=== PATIENT | female | born 1985 | race Hispanic/Latino ===

== ENCOUNTER 2017-02-04 21:31 | Emergency (ER) | payer BC, MEDICAID ==
--- NOTE | 2017-02-05 00:06 | ED PDOC ---
HPI: Psych/Substance Abuse Time Seen by Provider: 02/04/17 22:05 Chief Complaint (Nursing): Substance Abuse History Per: Patient Additional Complaint(s): Pt. brought in by [employer] for substance use. Pt. states she smoked a "drug" today. Offers no complaints at this time. [employer] requesting medical and psychiatric clearance. Denies SI/HI, hallucinations. Past Medical History Reviewed: Historical Data, Nursing Documentation, Vital Signs Vital Signs: Last Vital Signs Temp 98.5 F 02/04/17 23:20 Pulse 91 H 02/04/17 23:20 Resp 18 02/04/17 23:20 BP 136/81 02/04/17 23:20 Pulse Ox 95 02/04/17 23:20 - Family History Family History: States: No Known Family Hx - Immunization History Hx Tetanus Toxoid Vaccination: No Hx Influenza Vaccination: No Hx Pneumococcal Vaccination: No - Home Medications Home Medications: Ambulatory Orders Medication Instructions Recorded Doxycycline [Adoxa] 1 tab PO BID #14 tab 03/30/15 Multivitamin 1 tab PO DAILY 03/30/15 - Allergies Allergies/Adverse Reactions: Allergies Allergy/AdvReac Type Severity Reaction Status Date / Time No Known Allergies Allergy Verified 03/30/15 10:06 Review of Systems ROS Statement: Except As Marked, All Systems Reviewed And Found Negative Physical Exam - Reviewed Nursing Documentation Reviewed: Yes Vital Signs Reviewed: Yes - Physical Exam Appears: Positive for: Well, Non-toxic, No Acute Distress Head Exam: Positive for: ATRAUMATIC, NORMAL INSPECTION, NORMOCEPHALIC Skin: Positive for: Normal Color, Warm. Negative for: Rash Eye Exam: Positive for: EOMI, Normal appearance, PERRL ENT: Positive for: Normal ENT Inspection Neck: Positive for: Normal, Painless ROM Cardiovascular/Chest: Positive for: Regular Rate, Rhythm Respiratory: Positive for: CNT, Normal Breath Sounds Gastrointestinal/Abdominal: Positive for: Normal Exam, Bowel Sounds, Soft Back: Positive for: Normal Inspection Extremity: Positive for: Normal ROM Neurologic/Psych: Positive for: Alert, Oriented - ECG O2 Sat by Pulse Oximetry: 95 - Progress ED Course And Treament: Pt. evaluated by Sarah guillory, who spoke with Dr. Son and cleared pt. for discharge. Disposition - Clinical Impression Clinical Impression: Substance abuse - Patient ED Disposition Is Patient to be Admitted: No - Disposition Disposition: Routine/Home Disposition Time: :33 Condition: STABLE Additional Instructions: Patient is medically and psychiatrically cleared for incarceration. Instructions: Polysubstance Abuse (ED)
[2017-02-05 01:39] VITALS: BP 129/83; PULSE 84; RESP 17; TEMP 98.1; O2SAT 100
== END 2017-02-05 01:38 ==
LOC: H.ER 21:31
DX: F19.10 Other psychoactive substance abuse, uncomplicated (principal)

== ENCOUNTER 2018-06-28 08:35 | Emergency (ER) | payer MEDICAID ==
[2018-06-28] MEDS ORDERED: Oxycodone/Acetaminophen 5/325 mg Tab PO STA (09:36)
--- NOTE | 2018-06-28 09:44 | ED PDOC ---
Lower Extremity Pain/Injury Time Seen by Provider: 06/28/18 09:12 Chief Complaint (Nursing): Lower Extremity Problem/Injury Chief Complaint (Provider): Right Leg Injury History Per: Patient History/Exam Limitations: no limitations Onset/Duration Of Symptoms: Days (x2) Current Symptoms Are (Timing): Still Present Additional Complaint(s): 32 year old female, with no significant PMHx, presenting for evaluation of right leg pain x2 days. Patient states she fell down 4 step last night and has been unable to ambulate since. Patient is currently complaining of lower right leg pain. Patient denies taking any medication for pain. Otherwise she denies any numbness or tingling. Past Medical History Reviewed: Historical Data, Nursing Documentation, Vital Signs Vital Signs: Last Vital Signs Temp 98.6 F 06/28/18 08:39 Pulse 90 06/28/18 08:39 Resp 17 06/28/18 08:39 BP 106/70 06/28/18 08:39 Pulse Ox 96 06/28/18 08:39 - Medical History PMH: No Chronic Diseases Denies: Diabetes, Hepatitis, HIV, HTN, Seizures, Sexually Transmitted Disease - Surgical History Surgical History: No Surg Hx - Family History Family History: States: Unknown Family Hx - Immunization History Hx Tetanus Toxoid Vaccination: No Hx Influenza Vaccination: No Hx Pneumococcal Vaccination: No - Home Medications Home Medications: Ambulatory Orders Medication Instructions Recorded Doxycycline [Adoxa] 1 tab PO BID #14 tab 03/30/15 Multivitamin 1 tab PO DAILY 03/30/15 oxyCODONE/Acetaminophen [Percocet 1 tab PO Q6H PRN #15 tab 06/28/18 5/325 mg Tab] - Allergies Allergies/Adverse Reactions: Allergies Allergy/AdvReac Type Severity Reaction Status Date / Time No Known Allergies Allergy Verified 03/30/15 10:06 Review of Systems ROS Statement: Except As Marked, All Systems Reviewed And Found Negative Musculoskeletal: Positive for: Leg Pain (right) Neurological: Negative for: Numbness Physical Exam - Reviewed Nursing Documentation Reviewed: Yes Vital Signs Reviewed: Yes - Physical Exam Appears: Positive for: Non-toxic, No Acute Distress Pulses-Dorsalis Pedis (L): 2+ Pulses-Dorsalis Pedis (R): 2+ Extremity: Positive for: Tenderness (tenderness to the right lateral lower leg with no ecchymosis and no deformity), Other (ecchymosis to the right lateral foot and lateral malleolus with edema and decreased ROM secondary to pain; sensation intact) Neurologic/Psych: Positive for: Alert, Oriented. Negative for: Motor/Sensory Deficits - ECG O2 Sat by Pulse Oximetry: 96 (RA) Pulse Ox Interpretation: Normal Medical Decision Making Medical Decision Makin Impression: Right leg injury Plan: -Urine dip -Right Knee x-ray -Percocet 1 tab PO -Right ankle x-ray -Right foot x-ray -Right tib-fib x-ray -Reevaluation 934: Case discussed with podiatry who will see and evaluate patient. Pt seen and examined by Podiatry, dx high fibular fx, case d/w Dr. Marcelino, Ortho not needed for fibular fx since not surgical case but needs OR for ankle disruption. Norton compressive dressing placed, crutches nonweight-bearing. Scribe Attestation: Documented by Arnaldo Chawla, acting as a scribe for Eugenie Traore MD. Provider Scribe Attestation: All medical record entries made by the Scribe were at my direction and personally dictated by me. I have reviewed the chart and agree that the record accurately reflects my personal performance of the history, physical exam, medical decision making, and the department course for this patient. I have also personally directed, reviewed, and agree with the discharge instructions and disposition. Disposition - Clinical Impression Clinical Impression: Right fibular fracture - Patient ED Disposition Is Patient to be Admitted: No - Disposition Referrals: Alexy Marcelino DPM [Staff Provider] - Disposition: Routine/Home Disposition Time: 11:10 Condition: STABLE Additional Instructions: FOLLOW-UP WITH DR. MARCELINO ON TUESDAY (07/03/18). Prescriptions: oxyCODONE/Acetaminophen [Percocet 5/325 mg Tab] 1 tab PO Q6H PRN #15 tab PRN Reason: Pain, Severe (8-10) Instructions: Fibula Fracture Forms: [facility] ([facility])
[2018-06-28 11:19] VITALS: TEMP 98.6
--- NOTE | 2018-06-28 11:57 | RAD ---
Date of service: 06/28/2018 PROCEDURE: Right Foot Radiographs. HISTORY: Fall COMPARISON: None. FINDINGS: BONES: Normal. No fracture. JOINTS: Normal. SOFT TISSUES: Normal. OTHER FINDINGS: None. IMPRESSION: Normal right foot radiographs.
[2018-06-28 11:58] VITALS: BP 110/70; PULSE 87; RESP 18; O2SAT 98
--- NOTE | 2018-06-28 12:00 | RAD ---
Date of service: 06/28/2018 PROCEDURE: Radiographs of the right tibia and fibula. HISTORY: Fall COMPARISON: None available TECHNIQUE: Frontal and lateral views obtained. FINDINGS: BONES: A lateral proximal fibular metaphyseal spiral fracture is noted JOINT SPACES: Unremarkable. OTHER FINDINGS: Possible additional nondisplaced fracture posterior malleolus IMPRESSION: Nondisplaced lateral proximal fibular metaphyseal spiral fracture noted. Comments: Consider further evaluation with MRI of the right ankle if needed to assess potential posterior malleolar nondisplaced fracture. Comments: Study marked for PA review .
--- NOTE | 2018-06-28 12:02 | RAD ---
Date of service: 06/28/2018 PROCEDURE: Right Ankle Radiographs. HISTORY: Fall COMPARISON: None FINDINGS: BONES: Possible nondisplaced posterior malleolar trabecular fracture JOINTS: Normal. No osteoarthritis. Ankle mortise maintained. Talar dome intact SOFT TISSUES: Lateral and posterior soft tissue swelling. OTHER FINDINGS: None. IMPRESSION: Possible nondisplaced posterior malleolar trabecular fracture. Lateral soft tissue tissue swelling in the area of interest is noted. Comments: Consider MRI or CT of the right ankle for further evaluation. Comments: Study marked for PA review .
--- NOTE | 2018-06-28 12:34 | RAD ---
Date of service: 06/28/2018 PROCEDURE: Right Knee Radiographs. HISTORY: Fall COMPARISON: None. FINDINGS: BONES: Nondisplaced fracture proximal fibular shaft to metaphysis. JOINTS: Normal. No osteoarthritis. JOINT EFFUSION: None. OTHER FINDINGS: None. IMPRESSION: Nondisplaced fracture proximal fibular shaft to metaphysis. Comments: Please note additional findings regarding the right ankle in the right ankle and right tib fib report. Comments: Study marked for PA review .
--- NOTE | 2018-06-28 13:34 | CP.PCM.PN ---
Subjective - Date & Time of Evaluation Date of Evaluation: 06/28/18 Time of Evaluation: 13:32 - Subjective Subjective: Podiatry Consult Note for Dr. Edmonds: 32 yo female patient, with no siginificant PMHx, seen and evaluated for R leg pain. Patient states that yesterday she fell down the stairs and and banged her leg on the steps. After the incident she was no longer able to ambulate and in severe pain. She currently rates the pain a 10/10. She continues to take OTC pain medication for her pain. After her pain did not resolved, she presented to the ED for further evaluation. Patient is accompanied by her mother. Denies any numbness or tingling. Denies N/V/F/SOB. PMHx: Denies PSHx: Denies All: NKDA Objective - Vital Signs/Intake and Output Vital Signs (last 24 hours): Temp Pulse Resp BP Pulse Ox 98.6 F 87 18 110/70 98 06/28/18 08:39 06/28/18 11:57 06/28/18 11:57 06/28/18 11:57 06/28/18 11:57 - Constitutional Appears: Well, Non-toxic, No Acute Distress - Extremities Exam Additional comments: Vascular: DP/PT 2/4, CFT < 3seconds to all digits, TG WNL, +1 edema to ankle joint and lateral aspect of leg Ortho: MMT 3/5 due to patient guarding, patient able to wiggle toes, severe pain upon palpation of lateral aspect of leg, pain with palpation of anterior ankle Neuro: Gross and protective sensation intact. No paresthesia or paralysis Derm: No open lesions, no erythema, no clinical signs of infection. Diffuse ecchymosis noted to medial aspect of ankle along the course of posterior tibial tendon. - Neurological Exam Neurological Exam: Alert, Awake, Oriented x3 - Psychiatric Exam Psychiatric exam: Normal Affect, Normal Mood Assessment and Plan - Assessment and Plan (Free Text) Assessment: 32 yo female patient, with no siginificant PMHx, seen and evaluated for R leg pain secondary to high fibular fracture and syndesmotic injury Plan: Patient seen and evaluated with all questions and concerns addressed Tib fib, knee, ankle, and foot x-rays taken; Nondisplaced fracture proximal fibular shaft to metaphysis,possuble non-displaced lateral proximal fibular metaphyseal spiral fracture Hiram compression and posterior splint applied to RLE Patient given crutches and instructed on their proper use OTC pain medication as needed Patient to follow up in podiatry clinic Patient will be booked for surgery for repair of syndesmosis Patient expressed verbal understanding Thank you for the consult
== END 2018-06-28 11:50 | disposition home or self-care (01) ==
LOC: H.ER 08:35
DX: S82.401A Unspecified fracture of shaft of right fibula, initial encounter for closed fracture (principal); W10.9XXA Fall (on) (from) unspecified stairs and steps, initial encounter; Y92.89 Other specified places as the place of occurrence of the external cause

== ENCOUNTER 2018-06-30 06:39 | Day surgery (SDC) | payer MEDICAID ==
[2018-06-29 08:46] VITALS: BMI 30.9
[2018-06-30] MEDS ORDERED: Ropivacaine 0.5% 30ML IV ONE (06:55)
[2018-06-30] MEDS ORDERED: Propofol 10 mg/ml Inj (20 ML) ONE (07:08)
[2018-06-30] MEDS ORDERED: Rocuronium 10 mg/ml (5 ml) ONE (07:08)
[2018-06-30] MEDS ORDERED: Lidocaine 4% (Laryng-O-Jet) Kit MM ONE (07:08)
[2018-06-30] MEDS ORDERED: Neostigmine 1:1000 (1 mg/ml) Inj ONE (07:08)
[2018-06-30] MEDS ORDERED: Succinylcholine 200 mg/10 ml Inj IV ONE (07:08)
[2018-06-30] MEDS ORDERED: Sevoflurane - Inhalation Anesthetic Liq (250 ml) ONE (07:08)
[2018-06-30] MEDS ORDERED: Midazolam 2 MG/2 ML VIAL ONE (07:08)
[2018-06-30] MEDS ORDERED: Lidocaine 1% Inj (20ml) ONE (07:30)
[2018-06-30] MEDS ORDERED: Bupivacaine HCl 0.25% PF (30 ml) Inj ONE (07:30)
[2018-06-30] MEDS ORDERED: Lactated Ringer's 1,000 ML IV ONE (07:30)
--- NOTE | 2018-06-30 07:36 | CP.PCM.PN ---
Subjective - Date & Time of Evaluation Date of Evaluation: 06/30/18 Time of Evaluation: 07:35 - Subjective Subjective: Same Day Surgery Progress Note for Dr. Edmonds: 32 yo female patient, with no significant PMHx, seen and evaluated in same day surgery for R syndesmotic repair. Patient states that she has not eaten anything past midnight. She is aware why she is going to surgery today and has no new questions. Patient is accompanied by her mother at bedside. Patient denies N/V/F/SOB/CP. Objective - Vital Signs/Intake and Output Vital Signs (last 24 hours): Temp Pulse Resp BP Pulse Ox 97.9 F 80 20 116/54 L 96 06/30/18 07:17 06/30/18 07:20 06/30/18 07:17 06/30/18 07:17 06/30/18 07:17 - Constitutional Appears: Well, Non-toxic, No Acute Distress - Head Exam Head Exam: ATRAUMATIC, NORMOCEPHALIC - Extremities Exam Additional comments: RLE focused exam: Vascular: DP/PT 2/4, CFT < 3seconds to all digits, TG WNL, +1 edema to ankle joint and lateral aspect of leg Ortho: MMT 3/5 due to patient guarding, patient able to wiggle toes, severe pain upon palpation of lateral aspect of leg, pain with palpation of anterior ankle Neuro: Gross and protective sensation intact. No paresthesia or paralysis Derm: No open lesions, no erythema, no clinical signs of infection. Diffuse ecchymosis noted to medial and lateral aspect of ankle along the course of posterior tibial tendon. - Neurological Exam Neurological Exam: Alert, Awake, Oriented x3 - Psychiatric Exam Psychiatric exam: Normal Affect, Normal Mood Assessment and Plan - Assessment and Plan (Free Text) Assessment: 32 yo female patient, with no significant PMHx, seen and evaluated in same day surgery for R syndesmotic repair. Plan: Pt was seen and examined in SDS Pt NPO status was confirmed All pre-op testing and clearance in chart Pt has exhausted all conservative treatment at this time and is opting for surgical intervention Pt was explained procedure and post-operative course All pt's questions were answered to satisfaction No guarantees were made Pt understands all risks, benefits and complications of procedure Pt will follow-up with Dr. Edmonds within 1 week of surgery
--- NOTE | 2018-06-30 07:41 | CP.SDSHP ---
Same Day Surgery H & P - History Proposed Procedure: R syndesmotic repair Pre-Op Diagnosis: R fibular fracture with syndesmotic disruption - Allergies Allergies: Allergies acetaminophen [From Percocet] Allergy (Verified 06/29/18 08:46) RASH oxycodone [From Percocet] Allergy (Verified 06/29/18 08:46) RASH paroxetine [From Paxil] Allergy (Verified 06/29/18 08:45) RASH - Physical Exam Vital Signs: Vital Signs 06/30/18 06/30/18 07:17 07:20 Temperature 97.9 F Pulse Rate 80 80 Respiratory 20 Rate Blood Pressure 116/54 L O2 Sat by Pulse 96 Oximetry Mental Status: Alert & Oriented x3 Neuro: WNL Short Stay Discharge - Short Stay Discharge Admitting Diagnosis/Reason for Visit: S83.431 Disposition: HOME/ ROUTINE Referrals: Blas López MD [Primary Care Provider] - Additional Instructions (Diet, Activity): -Patient in good/stable condition for discharge home -Pt to resume medications per medical reconciliation -Resume regular diet -Please keep dressing clean, dry, & intact to surgical site -Use plastic bag over bandage for showering -Wear post op shoe at all times when ambulating -Call clinic if you see signs of infection (redness, swelling, malodor) -Please make an appointment to see Dr. Edmonds in office/clinic within 1 week for post-op check Progress Note/Discharge Note with Instructions: - Patient evaluated bedside in recovery - After surgical procedure patient in NAD - (+) Void, (+) Appetite - Capillary refill time <3s and NVS intact. - Patient denies complaints at this time. - Post operative instructions and plan of care explained to patient at length. - Patient. acknowledges verbal understanding. - Patient stable for DC per podiatric surgery
[2018-06-30] MEDS ORDERED: Bupivacaine 0.5% Inj(30mL) IJ ONE (07:53)
[2018-06-30] MEDS ORDERED: Lidocaine 1% Inj (20ml) IJ ONE (07:53)
[2018-06-30] MEDS ORDERED: Dexamethasone 4 mg/1 ml ONE (08:33)
--- NOTE | 2018-06-30 10:08 | PCM.SURG1 ---
Surgeon's Initial Post Op Note - Surgeon's Notes Surgeon: Dr. Edmonds, DPM [employer] Instructor: Sergio Perez, PGY-3; Micky Rosario, PGY-3 Type of Anesthesia: General LMA, Block Regional (Popliteal and Saphenous) Anesthesia Administered By: Dr. Micky Solis MD Pre-Operative Diagnosis: Right ankle: 1) Right ankle syndesmosis rupture 2) Proximal fibular neck fracture Operative Findings: See dictation. M: Arthrex titanium 4-hole butress plate; Arthrex titanium 3.5 x 14mm screws (x2); Arthrex Syndesmotic tightrope (x2). 2- 0 vicryl; 4-0 vicryl, 4-0 monocryl Post-Operative Diagnosis: same as pre-operative Operation Performed: Rigth ankle syndesmotic repair Specimen/Specimens Removed: none Estimated Blood Loss: EBL {In ML}: 5 Blood Products Given: N/A Drains Used: No Drains Post-Op Condition: Good Date of Surgery/Procedure: 06/30/18 Time of Surgery/Procedure: 10:10
[2018-06-30] MEDS ORDERED: Lactated Ringer's 1,000 ML IV SCH (10:15)
[2018-06-30 10:53] VITALS: RESP 18
--- NOTE | 2018-06-30 11:25 | PCM.ANESB2 ---
Popliteal Nerve Block - Popliteal Nerve Block Date of Procedure: 06/30/18 Anesthesiologist: Benito Solis Pre-Procedure Diagnosis: R ankle fracture Procedure Performed: Popliteal Nerve Block Right - Procedure Popliteal Nerve Block: This procedure was explained to the patient that it is for post-operative pain management. Consent was obtained after a thorough discussion with the patient regarding the benefits and possible complications of local anesthetic block of the sciatic nerve at the popliteal level. The patient was brought to the operating room and standard monitors are applied. Time-out was held with the circulating nurse to confirm the correct surgery and the appropriate block. After inducing general anesthesia, patient's operative leg was gently raised and supported and the groove in between the biceps femoris and vastus lateralis muscles was carefully palpated. The skin approximately 8cm above the popliteal crease was then marked. The ultrasound transducer was then applied to the posterior thigh approximately 8cm above the popliteal crease in the transverse plane and the sciatic nerve before its division was visualized lateral to the popliteal artery and in between the bicep femoris and semimembranosus/semitendinosus muscles. After identification, the lateral portion of the thigh was prepped with Chloroprep solution. At this point, a # 21 gauge Stimuplex insulated 4 inch needle was inserted into pre-marked area and advanced in a perpendicular direction. The needle was inserted above the ultrasound transducer in-plane towards the sciatic nerve in a [id number] direction. Needle advancement was performed carefully under direct ultrasound visualization. After repeated negative aspiration, 30cc of 0.5 % ropivacaine was injected in 5cc aliquots. Under ultrasound guidance the local anesthetics were observed surrounding sciatic nerve . The needle was removed i ntact and sterile dressing was applied. The patient tolerated the popliteal nerve block well with stable vital signs and was subsequently prepared for the surgery.
--- NOTE | 2018-06-30 11:27 | PCM.ANESB7 ---
Adductor Canal Block - Adductor Canal Block Date of Procedure: 06/30/18 Anesthiologist: Benito Solis Pre-Procedure Diagnosis: R ankle fracture Post-Procedure Diagnosis: R ankle fracture Procedure Performed: Adductor Canal Block Right - Procedure Adductor Canal Block: The procedure was explained to the patient that it is for the post-operative pain management. Consent was obtained after a thorough discussion with the patient regarding the benefits and possible complications of local anesthetic adductor canal block of the femoral nerve. Standard monitors, as defined by the ASA, were applied to the patient. Time-out was held with the circulating nurse to confirm the appropriate block. After inducing general anesthesia, the patient was placed in supine position with and the operative leg was flexed slightly at the knee and externally rotated as needed, and was kept anatomically stable. The mid-thigh of the right lower extremity was exposed. The ultrasound transducer was then applied transversely along the medial aspect, about midway down the thigh and the femoral artery and vein were identified in appropriate relation with the sartorius muscle. At this time, the femoral nerve was visualized lateral to the femoral artery within the canal. After thorough identification, this area area was prepped with Chloroprep solution three times . At this point, a #22 gauge Stimuplex 4-inch needle was inserted in-plane in a [id number] orientation, and advanced toward the femoral nerve. Advancement was performed carefully under direct ultrasound visualization. After negative aspiration, 20cc of 0.5% ropivacaine was injected in 5cc aliquots. Under ultrasound guidance the local anesthetics were observed spreading around the femoral nerve. The needle was removed intact and sterile dressing was applied. The patient had stable vital signs, was conscious and in no apparent distress. The patient tolerated the femoral nerve block well with stable vital signs and was prepared for subsequent surgery
[2018-06-30 12:00] VITALS: O2SAT 99
--- NOTE | 2018-06-30 14:14 | RAD ---
Date of service: 06/30/2018 PROCEDURE: Right Ankle Radiographs. HISTORY: s/p right ankle surgery COMPARISON: 06/28/2018 right ankle radiographs FINDINGS: BONES: No visible fracture. No evidence of orthopedic hardware failure. JOINTS: Normal. No osteoarthritis. Ankle mortise maintained. Talar dome intact SOFT TISSUES: Soft tissue swelling identified previously obscured by overlying fiberglass cast OTHER FINDINGS: None. IMPRESSION: Satisfactory postoperative status.
[2018-06-30 16:02] VITALS: BP 117/78; PULSE 73; TEMP 98
--- NOTE | 2018-07-03 09:05 | OP ---
PROCEDURE DATE: 06/30/2018 PATIENT'S AGE: 32. PATIENT'S GENDER: Female. PRIMARY SURGEON: Farooq Edmonds DPM PRIMARY LATENT FINGERPRINT EXAMINER: Kendra Perez DPM, PGY-3 SECONDARY LATENT FINGERPRINT EXAMINER: Shena Rosario DPM, PGY-3 ANESTHESIOLOGIST: Benito Solis MD ANESTHESIA TYPE: General LMA with regional popliteal and saphenous nerve blocks. PREOPERATIVE DIAGNOSES: 1. Right ankle syndesmosis rupture. 2. Right proximal fibular neck fracture. POSTOPERATIVE DIAGNOSES: 1. Right ankle syndesmosis rupture. 2. Right proximal fibular neck fracture. PROCEDURE PERFORMED: Right ankle syndesmotic repair. INDICATIONS: The patient is a 32-year-old female who suffered a traumatic injury and is now in need of surgical intervention. The patient signed the surgical consent after careful explanation of risks, benefits, complications, and potential alternatives to the proposed surgical procedure. No guarantees were either given or implied. All the patient's questions were answered to her satisfaction. PREPARATION: The patient's NPO status was confirmed prior to bringing the patient to the operating room. The patient was brought to the operating room and placed on the operating room table in a supine position. General anesthesia was commenced and confirmed to have been achieved. At this time, the patient received preoperative regional blocks by Anesthesia. Once anesthesia confirmed to have been achieved, the patient then received a well-padded pneumatic tourniquet at the level of the patient's right thigh, which was set to 350 mmHg to be inflated once the procedure began. The patient then received an ipsilateral to the level hip bump inferior to the operating room mattress head. With the patient was adequately positioned, the patient's right lower extremity was then prepped and draped to the knee in the usual sterile manner. The foot was exsanguinated, tourniquet was inflated, and the procedure began. DESCRIPTION OF PROCEDURE: Right ankle syndesmotic repair. Attention was then directed to the lateral aspect of the patient's right ankle where lateral malleoli anatomical margins were then identified and marked. Under fluoroscopic evaluation, level of the patient's syndesmosis was identified and level marked. At this time, on the lateral aspect of the leg, an approximately 4-cm linear longitudinal incision was made using a #15 blade overlying the lateral cortex of the fibula. This incision was extended down to the subcutaneous tissue layers with care being taken to identify, avoid, and retract all vital neurovascular structures. All bleeders were cauterized and ligated as needed and encountered. No neurovascular structures were evaluated at this time at the lateral level of periosteum. At this time, a linear longitudinal incision was made through the fibular periosteum using a #15 blade. Periosteal structures were then retracted anteriorly and posteriorly respectively. Peroneal tendons were well protected via retraction. At this time, evaluation of lateral cortex was identified. At this time, Arthrex 4-hole buttress plate was then aligned to span distal syndesmosis following standard AO principles and techniques. A pair of 2.5 mm x 14 mm screws were then used to affix the plates to the bone. Screws were placed in the most proximal and most distal holes of the plates respectively. Central two holes were then utilized for syndesmotic reapproximation and fixation. At this time, a pair of Arthrex Syndesmotic Tightropes were then driven from lateral to medial, affixed, and secured to adequately tension and secure distal syndesmosis. Under fluoroscopic evaluation, ankle syndesmosis was stressed and found to be stable and well fixated. Surgical site was then flushed with copious amounts of sterile saline. Periosteal structures were then reapproximated using 2-0 Vicryl. Subcutaneous tissue was then reapproximated using 4-0 Vicryl. Skin was reapproximated using 4-0 Monocryl in a running subcuticular suture-type fashion. Surgical site was then cleansed and dressed with saline-soaked 4x4 gauze, dry Profore, Kerlix, Fiorella, Coban, and Rajiv. Above knee level padding was utilized. The patient was placed in a bivalve fiberglass cast. Attending was present for the entirety of the surgery. POSTOPERATIVE CONDITION: The patient tolerated the anesthesia and procedure well and was escorted to the recovery room with vital signs stable and neurovascular status intact. The patient had no complaints or complications. The patient will follow up with Dr. Edmonds on an outpatient basis. Kendra Perez DPM Farooq Edmonds DPM [facility] # [id number]
== END 2018-06-30 14:45 | disposition home or self-care (01) ==
LOC: H.OPSURG 06:39
PROVIDERS: ATTEND Podiatrist
DX: S82.891A Other fracture of right lower leg, initial encounter for closed fracture (principal); S93.431A Sprain of tibiofibular ligament of right ankle, initial encounter; X58.XXXA Exposure to other specified factors, initial encounter; J45.909 Unspecified asthma, uncomplicated
CPT/HCPCS: 27829; 73610; 97161; C1769; G8978; G8979; G8980; J0330; J0690; J1100; J2001; J2250; J2405; J2704; J3010; J7030; J7120